=== PATIENT | male | born 1985 | race Caucasian/White ===

== ENCOUNTER 2019-10-08 10:16 | Emergency (ER) | payer OTHER ==
[2019-10-08 10:23] VITALS: BP 121/54
[2019-10-08] MEDS ORDERED: BENZONATATE 100 MG CAPSULE PO ONE (10:25)
[2019-10-08] MEDS ORDERED: LIDOCAINE 2% VISCOUS SOLN 20 ML UDCUP PO ONE (10:28)
--- NOTE | 2019-10-08 10:31 | ER Document Report ---
HPI - HPI Time Seen by Provider: 10/08/19 10:21 Pain Level: 1 Context: 33-year-old healthy male with history of dental infections presents to the emergency department with an infection of the #31 tooth. He woke up this morning with some jaw swelling and states this is his usual course when he gets a dental abscess. He denies any pain, denies trismus, denies any difficulty with chewing, airway is patent. No fevers or chills, no nausea or vomiting, denies any foul taste in his mouth. No other complaints Past Medical History - Social History Smoking Status: Current Every Day Smoker Family History: None Patient has suicidal ideation: No Patient has homicidal ideation: No Past Surgical History: Reports: Hx Tonsillectomy Vertical Provider Document - CONSTITUTIONAL Notes: PHYSICAL EXAMINATION: Reviewed vital signs and charting by RN GENERAL: Alert, interacts well. No acute distress. HEAD: Normocephalic, atraumatic. [place] is broken off of the #31 tooth and there is some purulent discharge with necrosis at the root bases. There is some swelling on the buccal aspect of the tooth EYES: Pupils equal and round. Extraocular movements intact. ENT: Oral mucosa moist, tongue midline. NECK: Full range of motion. Trachea midline. EXTREMITIES: Moves all 4 extremities spontaneously. No edema, No cyanosis. PSYCH: Normal affect, normal mood. SKIN: Warm, dry, normal turgor. No rashes or lesions noted. Course - Re-evaluation Re-evalutation: 10/08/19 10:28 Presentation is most consistent with likely an infected tooth. Airway is patent. Vitals within normal limits. Patient is able swallow without any difficulty. There is no significant facial swelling. No evidence of [place] angina, apical abscess, or airway obstruction. Patient will be started on antibiotics. I've instructed to follow-up with dentistry as earliest ability for definitive management. At this time will discharge with return precautions and follow-up recommendations. Verbal discharge instructions given a the bedside and opportunity for questions given. Medication warnings reviewed. Patient is in agreement with this plan and has verbalized understanding of return precautions and the need for primary care follow-up in the next 24-72 hours. - Vital Signs Vital signs: Temp Pulse Resp BP Pulse Ox 97.5 F 71 14 121/54 L 97 10/08/19 10:22 10/08/19 10:22 10/08/19 10:22 10/08/19 10:22 10/08/19 10:22 Discharge - Discharge Clinical Impression: Dental infection Condition: Good Disposition: HOME, SELF-CARE Instructions: Penicillin V K ([facility]), Toothache ([facility]) Additional Instructions: You have been seen for dental pain. You have an abscess of the back right molar as the crown is broken off and there is infection present. I have given you a prescription for prednisone that you need to take 4 times per day for 7 days. Also, I have given you viscous lidocaine that you can use for pain. You can take a small 2 x 2 gauze and placing lidocaine on it then hold it over your tooth for some topical numbing. Have also given you a Tessalon Perle to try as well like we discussed. It is very important that you follow-up with a dentist for definitive care. Please return if you develop fever greater than 101, swelling in your face, vomiting, difficulty breathing or swallowing, or any other symptoms that are concerning to you. For pain you should take ibuprofen 600 mg every 6 hours as needed. Prescriptions: Penicillin V Potassium [Penicillin Vk 500 mg Tablet] 500 mg PO Q6H 7 Days #28 tablet Forms: Return to Work
== END 2019-10-08 10:45 | disposition home or self-care (01) ==
LOC: ER 10:16
DX: K04.7 Periapical abscess without sinus (principal); R68.84 Jaw pain; R22.0 Localized swelling, mass and lump, head; F17.200 Nicotine dependence, unspecified, uncomplicated
CPT/HCPCS: 99282; J3490